=== PATIENT | male | born 1960 | race Native Hawaiian/Other Pacific Islander ===

== ENCOUNTER 2016-10-27 09:11 | Outpatient (CLI) | payer OTHER ==
[2016-10-27 09:35] LABS: PLATELET COUNT 143 K/uL (142-355)
== END 2016-10-27 20:11 | disposition home or self-care (01) ==
LOC: LABW 09:11
PROVIDERS: Internal Medicine Gastroenterology
DX: B18.2 Chronic viral hepatitis C (principal)
CPT/HCPCS: 36415; 80076; 85027; 85610; 87522

== ENCOUNTER 2017-07-14 14:33 | Outpatient (CLI) | payer OTHER | END 2017-07-14 15:35 | disposition home or self-care (01) | LOC: RESP 14:33 | DX: Z79.899 Other long term (current) drug therapy (principal) | CPT/HCPCS: 93005 ==

== ENCOUNTER 2017-08-21 14:01 | Emergency (ER) | payer OTHER ==
[~2017-08-21] VITALS: Ht 172.7 cm; Wt 96.6 kg
[2017-08-21 14:18] VITALS: TEMP 97.7
[2017-08-21 15:47] LABS: POTASSIUM 4.2 mmol/L (3.6-5.2); SODIUM 135 mmol/L (136-145)
[2017-08-21 15:54] LABS: PLATELET COUNT 134 K/uL (142-355)
[2017-08-21 16:27] VITALS: BP 140/70
== END 2017-08-21 16:34 | disposition home or self-care (01) ==
LOC: ED 14:01
PROVIDERS: Family Medicine
DX: R10.84 Generalized abdominal pain (principal)
CPT/HCPCS: 36415; 80048; 85027; 99282

== ENCOUNTER 2017-11-20 15:23 | Inpatient (IN) | payer OTHER ==
[~2017-11-20] VITALS: Ht 172.7 cm; Wt 101.2 kg
[2017-11-20] VITALS (9 sets, daily range): BP systolic 105–137; BP diastolic 55–90; TEMP 99.1–100.8; Ht 172.7 cm; Wt 101.2 kg
[2017-11-20] MEDS ORDERED: GEODON60 MG PO (15:32)
[2017-11-20] MEDS ORDERED: ABILIFY MAINTE400 MG IM (15:33)
[2017-11-20 16:38] LABS: PLATELET COUNT 141 K/uL (142-355)
[2017-11-20 16:45] LABS: POTASSIUM 4.1 mmol/L (3.6-5.2); SODIUM 137 mmol/L (136-145)
[2017-11-21] VITALS (23 sets, daily range): BP systolic 90–171; BP diastolic 67–94; TEMP 97.8–98.8
[2017-11-21 06:40] LABS: PLATELET COUNT 107 K/uL (142-355)
[2017-11-21 06:50] LABS: POTASSIUM 3.8 mmol/L (3.6-5.2)
[2017-11-22] VITALS (18 sets, daily range): BP systolic 11–139; BP diastolic 65–97; TEMP 97.7–98.9
[2017-11-22 07:28] LABS: PLATELET COUNT 112 K/uL (142-355)
[2017-11-22 08:17] LABS: POTASSIUM 4.3 mmol/L (3.6-5.2)
[2017-11-23] VITALS: BP 127/82; TEMP 97.6
[2017-11-23 04:00] VITALS: BP 117/82; TEMP 97.7
[2017-11-23 05:29] LABS: PLATELET COUNT 140 K/uL (142-355)
[2017-11-23 05:39] LABS: POTASSIUM 4.1 mmol/L (3.6-5.2)
[2017-11-23 07:51] VITALS: BP 122/86; TEMP 97.8
[2017-11-23 12:00] VITALS: BP 125/71; TEMP 98.6
[2017-11-23 16:00] VITALS: BP 116/72; TEMP 98.4
[2017-11-23 20:00] VITALS: BP 109/70; TEMP 98.2
[2017-11-24] VITALS: BP 135/80; TEMP 98.1
[2017-11-24 04:00] VITALS: BP 142/85; TEMP 97.6
[2017-11-24 06:02] LABS: PLATELET COUNT 118 K/uL (142-355)
[2017-11-24 06:10] LABS: POTASSIUM 4.1 mmol/L (3.6-5.2)
[2017-11-24 08:24] VITALS: BP 141/90; TEMP 98.6
== END 2017-11-24 12:24 | disposition home or self-care (01) | DRG 193 ==
LOC: ED 15:23 → MED/SURG 18:23 → ICU 18:23 → MED/SURG 11-22 16:20
PROVIDERS: Emergency Medicine; ADMIT Internal Medicine
DX: J18.8 Other pneumonia, unspecified organism (principal); J96.01 Acute respiratory failure with hypoxia; J44.1 Chronic obstructive pulmonary disease with (acute) exacerbation; F20.89 Other schizophrenia; J44.0 Chronic obstructive pulmonary disease with (acute) lower respiratory infection
CPT/HCPCS: 36415; 36600; 80048; 80053; 81000; 82550; 82805; 82948; 83036; 83880; 84484; 85027; 87040; 87070; 87205; 94640; 94664; 94668; 94760; 96365; 96372; 96374; 99284; J1100; J1650; J1956; J2405; J2930

== ENCOUNTER 2018-04-21 11:13 | Emergency (ER) | payer OTHER ==
[~2018-04-21] VITALS: Ht 172.7 cm; Wt 104.3 kg
[~2018-04-21 11:13] MED LIST: ABILIFY MAINTE400 MG IM; GEODON60 MG PO
[2018-04-21 11:19] VITALS: TEMP 98.1
[2018-04-21 12:37] LABS: PLATELET COUNT 124 K/uL (142-355)
[2018-04-21 12:50] LABS: POTASSIUM 3.8 mmol/L (3.6-5.2)
[2018-04-21 14:30] VITALS: BP 148/92
[2018-05-05] MEDS ORDERED: ALBU90AE13 INH (10:10)
[2018-05-05] MEDS ORDERED: ATOR20TA2 PO (10:10)
[2018-05-05] MEDS ORDERED: ZIPR80CA PO (10:10)
== END 2018-04-21 14:50 | disposition other institution (70) ==
LOC: ED 11:13
DX: F20.89 Other schizophrenia (principal)
CPT/HCPCS: 80053; 80307; 80320; 80329; 81000; 85027; 93005; 96372; 99285; J1885

== ENCOUNTER 2018-06-23 15:12 | Outpatient (CLI) | payer OTHER ==
[~2018-06-23 15:12] MED LIST changes: +ALBU90AE13 INH; +ATOR20TA2 PO; +ZIPR80CA PO
== END 2018-06-23 19:26 | disposition home or self-care (01) ==
LOC: RAD 15:12
DX: J40 Bronchitis, not specified as acute or chronic (principal)

== ENCOUNTER 2018-10-30 13:07 | Emergency (ER) | payer OTHER ==
[~2018-10-30] VITALS: Ht 172.7 cm; Wt 108.9 kg
[2018-10-30 13:12] VITALS: TEMP 97.6
[2018-10-30 14:20] VITALS: BP 166/98
== END 2018-10-30 14:20 | disposition home or self-care (01) ==
LOC: ED 13:07
DX: R05 Cough (principal); J20.9 Acute bronchitis, unspecified
CPT/HCPCS: 94664; 99283

== ENCOUNTER 2018-11-16 16:53 | Outpatient (CLI) | payer OTHER ==
[2018-11-16 17:15] LABS: PLATELET COUNT 98 K/uL (142-355)
[2018-11-16 17:40] LABS: POTASSIUM 4.3 mmol/L (3.6-5.2)
== END 2018-11-16 19:45 | disposition home or self-care (01) ==
LOC: LAB 16:53
PROVIDERS: Internal Medicine Gastroenterology
DX: B18.2 Chronic viral hepatitis C (principal)
CPT/HCPCS: 36415; 80053; 82140; 85027; 85610; 87522

== ENCOUNTER 2018-11-26 09:44 | Outpatient (CLI) | payer OTHER | END 2018-11-26 19:47 | disposition home or self-care (01) | LOC: US 09:44 | DX: B18.2 Chronic viral hepatitis C (principal) ==

== ENCOUNTER 2019-01-11 02:09 | Emergency (ER) | payer OTHER ==
[~2019-01-11] VITALS: Ht 172.7 cm; Wt 107.5 kg
[2019-01-11 02:57] LABS: PLATELET COUNT 103 K/uL (142-355)
[2019-01-11 03:27] LABS: SODIUM 137 mmol/L (136-145)
[2019-01-11 03:54] VITALS: BP 161/87; TEMP 97.9
== END 2019-01-11 03:57 | disposition home or self-care (01) ==
LOC: ED 02:09
PROVIDERS: Emergency Medicine
DX: N13.2 Hydronephrosis with renal and ureteral calculous obstruction (principal); Z79.899 Other long term (current) drug therapy
CPT/HCPCS: 36415; 80053; 80307; 80329; 81000; 85027; 96372; 99283; J1885

== ENCOUNTER 2019-01-28 11:07 | Outpatient (CLI) | payer OTHER ==
[2019-01-28 11:58] LABS: PLATELET COUNT 85 K/uL (142-355)
[2019-01-28 12:24] LABS: POTASSIUM 4.2 mmol/L (3.6-5.2)
== END 2019-01-28 23:19 | disposition home or self-care (01) ==
LOC: RAD 11:07
PROVIDERS: Physician Assistant
DX: R19.02 Left upper quadrant abdominal swelling, mass and lump (principal); R11.11 Vomiting without nausea; R10.84 Generalized abdominal pain; Z79.899 Other long term (current) drug therapy
CPT/HCPCS: 36415; 74022; 80053; 80061; 82150; 83690; 84154; 84443; 85027

== ENCOUNTER 2019-03-07 10:25 | Outpatient (CLI) | payer OTHER ==
[2019-03-07 10:49] LABS: PLATELET COUNT 88 K/uL (142-355)
== END 2019-03-07 23:36 | disposition home or self-care (01) ==
LOC: LABW 10:25
PROVIDERS: Internal Medicine Gastroenterology
DX: B18.2 Chronic viral hepatitis C (principal)
CPT/HCPCS: 36415; 80076; 85027

== ENCOUNTER 2019-03-30 11:28 | Day surgery (SDC) | payer OTHER | END 2019-03-30 17:30 | disposition home or self-care (01) | LOC: OR 11:28 | PROC: 0DB68ZZ Excision of Stomach, Via Natural or Artificial Opening Endoscopic (ICD-10-PCS; principal; 2019-03-30) | DX: K21.0 Gastro-esophageal reflux disease with esophagitis (principal); K22.10 Ulcer of esophagus without bleeding; K29.50 Unspecified chronic gastritis without bleeding; K76.6 Portal hypertension; K31.89 Other diseases of stomach and duodenum; B18.2 Chronic viral hepatitis C; K74.60 Unspecified cirrhosis of liver; J44.9 Chronic obstructive pulmonary disease, unspecified | CPT/HCPCS: 94640; 94664; J2001; J2704 ==

== ENCOUNTER 2019-04-05 15:33 | Outpatient (CLI) | payer OTHER | END 2019-04-05 23:48 | disposition home or self-care (01) | LOC: LABW 15:33 | PROVIDERS: Nurse Practitioner Family | DX: L40.0 Psoriasis vulgaris (principal); Z79.899 Other long term (current) drug therapy; B18.2 Chronic viral hepatitis C | CPT/HCPCS: 36415; 80053; 80074; 86480; 87522 ==

== ENCOUNTER 2019-05-03 10:41 | Outpatient (CLI) | payer OTHER ==
[2019-05-03 11:09] LABS: POTASSIUM 3.9 mmol/L (3.6-5.2)
== END 2019-05-03 23:59 | disposition home or self-care (01) ==
LOC: LABW 10:41
PROVIDERS: Nurse Practitioner Family
DX: R94.5 Abnormal results of liver function studies (principal)
CPT/HCPCS: 36415; 80053

== ENCOUNTER 2019-05-23 11:53 | Inpatient (IN) | payer OTHER ==
[2019-05-23] VITALS (10 sets, daily range): BP systolic 102–151; BP diastolic 57–87; TEMP 97.5–98.2; Ht 172.7 cm; Wt 108.9 kg
[~2019-05-23] VITALS: Ht 172.7 cm; Wt 108.9 kg
[2019-05-23 12:55] LABS: PLATELET COUNT 116 K/uL (142-355)
[2019-05-23 13:01] LABS: POTASSIUM 3.8 mmol/L (3.6-5.2); SODIUM 140 mmol/L (136-145)
[2019-05-23 13:18] LABS: PARTIAL THROMBOPLASTIN TIME 26.7 SECONDS (24.5-33.6)
[2019-05-24] VITALS (10 sets, daily range): BP systolic 100–131; BP diastolic 59–84; TEMP 97.1–98.9
[2019-05-24 05:34] LABS: PLATELET COUNT 123 K/uL (142-355)
[2019-05-24 05:58] LABS: POTASSIUM 4.3 mmol/L (3.6-5.2)
[2019-05-24] MEDS ORDERED: EUTHYROX25 MCG PO (10:15)
[2019-05-24] MEDS ORDERED: TAMSULOSIN0.4 MG PO (10:17)
[2019-05-24] MEDS ORDERED: PANTOPRAZOLE 40MG TA PO (10:40)
[2019-05-24] MEDS ORDERED: CLOBETASOL0.051 EX (10:42)
[2019-05-24] MEDS ORDERED: KETOCONAZOLE2 % EX (10:45)
[2019-05-25] VITALS (15 sets, daily range): BP systolic 102–149; BP diastolic 58–86; TEMP 97.1–98.6
[2019-05-25 05:18] LABS: PLATELET COUNT 135 K/uL (142-355)
[2019-05-25 05:34] LABS: POTASSIUM 4.2 mmol/L (3.6-5.2)
[2019-05-26] VITALS (8 sets, daily range): BP systolic 105–128; BP diastolic 48–78; TEMP 97–98.7
[2019-05-26 08:12] LABS: PLATELET COUNT 143 K/uL (142-355)
[2019-05-26 08:21] LABS: POTASSIUM 3.5 mmol/L (3.6-5.2)
[2019-05-26] MEDS ORDERED: GLUCOTROL 5MG TAB PO (17:16)
[2019-05-26] MEDS ORDERED: SPIR50TA8 PO (17:17)
[2019-05-26] MEDS ORDERED: FURO40TA93 PO (17:18)
== END 2019-05-26 18:22 | disposition home or self-care (01) | DRG 441 ==
LOC: ED 11:53 → ICU 14:27
PROVIDERS: Internal Medicine; Student in an Organized Health Care Education/Training Program; ADMIT Family Medicine
DX: K72.00 Acute and subacute hepatic failure without coma (principal); I50.31 Acute diastolic (congestive) heart failure; F20.0 Paranoid schizophrenia; J44.1 Chronic obstructive pulmonary disease with (acute) exacerbation; K72.10 Chronic hepatic failure without coma; E11.65 Type 2 diabetes mellitus with hyperglycemia; I11.0 Hypertensive heart disease with heart failure; E03.8 Other specified hypothyroidism; K74.69 Other cirrhosis of liver; B18.2 Chronic viral hepatitis C; N40.0 Benign prostatic hyperplasia without lower urinary tract symptoms; K21.9 Gastro-esophageal reflux disease without esophagitis; K71.51 Toxic liver disease with chronic active hepatitis with ascites; R16.1 Splenomegaly, not elsewhere classified; R06.03 Acute respiratory distress; R09.02 Hypoxemia; E78.00 Pure hypercholesterolemia, unspecified
CPT/HCPCS: 36600; 80048; 80053; 80307; 80320; 80329; 82140; 82150; 82550; 82553; 82805; 83036; 83605; 83690; 83735; 83880; 84443; 84484; 85027; 85379; 85610; 85730; 87040; 93005; 93306; 94640; 94664; 96374; 99285; J1815; J1940; J2930

== ENCOUNTER 2019-06-17 10:33 | Outpatient (CLI) | payer OTHER ==
[~2019-06-17 10:33] MED LIST changes: +CLOBETASOL0.051 EX; +EUTHYROX25 MCG PO; +FURO40TA93 PO; +GLUCOTROL 5MG TAB PO; +KETOCONAZOLE2 % EX; +PANTOPRAZOLE 40MG TA PO; +SPIR50TA8 PO; +TAMSULOSIN0.4 MG PO
[2019-06-17 11:30] LABS: POTASSIUM 4.4 mmol/L (3.6-5.2)
== END 2019-06-17 19:50 | disposition home or self-care (01) ==
LOC: LABW 10:33
PROVIDERS: Internal Medicine Gastroenterology
DX: K75.81 Nonalcoholic steatohepatitis (NASH) (principal)
CPT/HCPCS: 36415; 80048

== ENCOUNTER 2020-05-03 10:32 | Outpatient (CLI) | payer OTHER ==
[2020-05-03 10:51] LABS: PLATELET COUNT 98 K/uL (142-355)
[2020-05-03 11:14] LABS: POTASSIUM 3.7 mmol/L (3.6-5.2)
== END 2020-05-03 21:57 | disposition home or self-care (01) ==
LOC: LABW 10:32
PROVIDERS: Internal Medicine
DX: E11.9 Type 2 diabetes mellitus without complications (principal); R32 Unspecified urinary incontinence
CPT/HCPCS: 36415; 80053; 80061; 81000; 82043; 82570; 83036; 84153; 84439; 84443; 85027

== ENCOUNTER 2020-07-05 15:14 | Emergency (ER) | payer OTHER ==
[~2020-07-05] VITALS: Ht 172.7 cm; Wt 99.8 kg
[2020-07-05 15:32] VITALS: BP 125/84; TEMP 98.5
== END 2020-07-05 16:35 | disposition home or self-care (01) ==
LOC: ED 15:14
DX: R05 Cough (principal); R09.89 Other specified symptoms and signs involving the circulatory and respiratory systems
CPT/HCPCS: 99281

== ENCOUNTER 2020-09-18 14:45 | Outpatient (CLI) | payer OTHER ==
[2020-09-18 15:27] LABS: PLATELET COUNT 110 K/uL (142-355)
[2020-09-18 16:05] LABS: POTASSIUM 4.4 mmol/L (3.6-5.2)
== END 2020-09-18 22:10 | disposition home or self-care (01) ==
LOC: LABW 14:45
PROVIDERS: ATTEND Internal Medicine
DX: E11.9 Type 2 diabetes mellitus without complications (principal); R32 Unspecified urinary incontinence
CPT/HCPCS: 36415; 80053; 80061; 81000; 83036; 84153; 84439; 84443; 85027

== ENCOUNTER 2020-11-15 11:19 | Outpatient (CLI) | payer OTHER | END 2020-11-15 21:45 | disposition home or self-care (01) | LOC: CT 11:19 | PROVIDERS: ATTEND Internal Medicine | DX: N20.0 Calculus of kidney (principal); J44.9 Chronic obstructive pulmonary disease, unspecified ==

== ENCOUNTER 2021-02-16 13:13 | Emergency (ER) | payer OTHER ==
[~2021-02-16] VITALS: Ht 172.7 cm; Wt 94.3 kg
[2021-02-16 13:24] VITALS: TEMP 99.9
[2021-02-16 14:23] LABS: PLATELET COUNT 92 K/uL (142-355)
[2021-02-16 14:31] LABS: POTASSIUM 3.9 mmol/L (3.6-5.2); SODIUM 143 mmol/L (136-145)
[2021-02-16 16:41] VITALS: BP 127/78
== END 2021-02-16 16:45 | disposition home or self-care (01) ==
LOC: ED 13:13
PROVIDERS: Family Medicine
DX: J44.1 Chronic obstructive pulmonary disease with (acute) exacerbation (principal); L40.8 Other psoriasis; I10 Essential (primary) hypertension; F17.210 Nicotine dependence, cigarettes, uncomplicated
CPT/HCPCS: 80053; 81000; 82550; 84484; 85027; 93005; 94664; 96374; 99284; J2930

== ENCOUNTER 2021-04-22 08:34 | Emergency (ER) | payer OTHER ==
[~2021-04-22] VITALS: Ht 172.7 cm; Wt 82.1 kg
[2021-04-22 08:44] VITALS: BP 136/93; TEMP 98
[2021-04-22 09:45] LABS: PLATELET COUNT 146 K/uL (142-355)
[2021-04-22 09:54] LABS: POTASSIUM 3.8 mmol/L (3.6-5.2); SODIUM 144 mmol/L (136-145)
[2021-04-22] MEDS ORDERED: ALBUTEROL0.083 % INH (11:56)
[2021-04-22] MEDS ORDERED: PROVENTIL108 MCG/AC INH (11:59)
== END 2021-04-22 10:50 | disposition other institution (70) ==
LOC: ED 08:34
PROVIDERS: Emergency Medicine Emergency Medical Services
DX: R41.82 Altered mental status, unspecified (principal); Z11.52 Encounter for screening for COVID-19; Z00.8 Encounter for other general examination
CPT/HCPCS: 80053; 80329; 85027; 87635; 99285; J3486; U0003

== ENCOUNTER 2022-01-18 15:17 | Emergency (ER) | payer OTHER ==
[~2022-01-18] VITALS: Ht 172.7 cm; Wt 82.1 kg
[2022-01-18 15:17] VITALS: BP 100/73; TEMP 96.5
[~2022-01-18 15:17] MED LIST changes: +ABILIFY 10MG TAB PO; +ACET-206 PO; +ALBUTEROL0.083 % INH; +CLOZ100T PO; +DIVALPROEX500 MG PO; +HALO5TAB10 PO; +LEVO0.0529 PO; +MAGNSUS68 PO; +PROVENTIL108 MCG/AC INH; +TAMS0.4C PO; +ZIPR20IN IM
[2022-01-18 15:36] LABS: PLATELET COUNT 108 K/uL (142-355)
[2022-01-18 15:47] LABS: POTASSIUM 4.3 mmol/L (3.6-5.2)
[2022-01-18] MEDS ORDERED: TYLENOL325 MG PO (17:44)
[2022-01-18] MEDS ORDERED: ABILIFY20 MG PO (17:44)
[2022-01-18] MEDS ORDERED: ALBUTEROL0.083 % INH (17:45)
[2022-01-18] MEDS ORDERED: DIVA250T PO (17:46)
[2022-01-18] MEDS ORDERED: FURO40TA93 PO (17:46)
[2022-01-18] MEDS ORDERED: GLIP10TA55 PO (17:46)
[2022-01-18] MEDS ORDERED: MAGNSUS68 PO (17:47)
[2022-01-18] MEDS ORDERED: LEVO0.0529 PO (17:47)
[2022-01-18] MEDS ORDERED: PANTOPRAZOLE 40MG TA PO (17:48)
[2022-01-18] MEDS ORDERED: OLAN2.5T2 PO (17:48)
[2022-01-18] MEDS ORDERED: K-TABS10 MEQ PO (17:49)
[2022-01-18] MEDS ORDERED: TAMS0.4C PO (17:49)
== END 2022-01-18 17:03 | disposition home or self-care (01) ==
LOC: ED 15:17
PROVIDERS: Family Medicine
DX: F20.0 Paranoid schizophrenia (principal); R46.89 Other symptoms and signs involving appearance and behavior; Z11.52 Encounter for screening for COVID-19; Z04.6 Encounter for general psychiatric examination, requested by authority
CPT/HCPCS: 80053; 85027; 87635; 93005; 99283; U0003

== ENCOUNTER 2023-05-25 19:27 | Emergency (ER) | payer OTHER ==
[~2023-05-25] VITALS: Ht 172.7 cm; Wt 90.3 kg
[~2023-05-25 19:27] MED LIST changes: +ABILIFY20 MG PO; +DEXTROSE IV; +DIVA250T PO; +DIVA500T2 PO; +DIVALPROEX500 M1 PO; +ESCI10TA PO; +GLIP10TA55 PO; +GLIPIZIDE ER PO; +HALO5INJ3 IM; +K-TABS10 MEQ PO; +LEXAPRO10 MG PO; +NYSTCRE TOP; +OLAN2.5T2 PO; +OLANZAPINE10 MG PO; +OLANZAPINE5 MG PO; +POTA10CA3 PO; +TYLENOL325 MG PO
[2023-05-25 19:30] VITALS: TEMP 98.1
[2023-05-25 19:45] LABS: PLATELET COUNT 97 K/uL (142-355)
[2023-05-25 19:57] LABS: POTASSIUM 3.6 mmol/L (3.6-5.2)
[2023-05-25 21:30] VITALS: BP 122/74
[2023-05-26] MEDS ORDERED: BENZ1TAB43 PO (07:49)
[2023-05-26] MEDS ORDERED: FURO40TA93 PO (07:50)
[2023-05-26] MEDS ORDERED: DIVALPROEX500 M1 PO ×2 (07:50→09:16)
[2023-05-26] MEDS ORDERED: DIVALPROEX250 M1 PO (07:50)
[2023-05-26] MEDS ORDERED: GLIPIZIDE ER PO (07:51)
[2023-05-26] MEDS ORDERED: HALO5INJ3 IM (07:52)
[2023-05-26] MEDS ORDERED: IPRATROPIUM/ INH (07:53)
[2023-05-26] MEDS ORDERED: LEVO0.0529 PO (07:53)
[2023-05-26] MEDS ORDERED: METF500T PO (07:54)
[2023-05-26] MEDS ORDERED: CLARITIN10 M1 PO (07:54)
[2023-05-26] MEDS ORDERED: KETOCONAZOLE21 TOP (07:55)
[2023-05-26] MEDS ORDERED: K-TABS10 MEQ PO (07:55)
[2023-05-26] MEDS ORDERED: RISP25IN IM (07:56)
[2023-05-26] MEDS ORDERED: RISP2TAB2 PO (07:57)
[2023-05-26] MEDS ORDERED: SPIRONOLACT25 MG PO (07:58)
[2023-05-26] MEDS ORDERED: TAMS0.4C PO (07:59)
[2023-05-26] MEDS ORDERED: TRELEGY ELLIPTA1 AER PO (07:59)
[2023-05-26] MEDS ORDERED: HALOPERIDOL DECANOAT IM (08:04)
[2023-05-26] MEDS ORDERED: LORA2INJ21 INJ (08:12)
[2023-06-08] MEDS ORDERED: BUDE1AER5 INH (11:17)
[2023-06-08] MEDS ORDERED: DIVALPROEX500 MG PO (11:17)
[2023-06-08] MEDS ORDERED: FURO40TA93 PO (11:18)
[2023-06-08] MEDS ORDERED: GLUCOTROL 5MG TAB PO (11:18)
[2023-06-08] MEDS ORDERED: LEVO0.0529 PO (11:19)
[2023-06-08] MEDS ORDERED: KETO2SHA7 TOP (11:19)
[2023-06-08] MEDS ORDERED: METF500T PO (11:20)
[2023-06-08] MEDS ORDERED: LORA10TA3 PO (11:20)
[2023-06-08] MEDS ORDERED: OLANZAPINE5 MG PO (11:20)
[2023-06-08] MEDS ORDERED: POTA10CA3 PO (11:21)
[2023-06-08] MEDS ORDERED: TAMS0.4C PO (11:21)
[2023-06-08] MEDS ORDERED: SPIR50TA8 PO ×2 (11:21)
[2023-06-08] MEDS ORDERED: TIOTCAP2 INH (11:22)
== END 2023-05-25 21:30 | disposition other institution (70) ==
LOC: ED 19:27
PROVIDERS: Family Medicine
DX: F20.9 Schizophrenia, unspecified (principal); J44.9 Chronic obstructive pulmonary disease, unspecified; R45.6 Violent behavior; R45.1 Restlessness and agitation; Z02.79 Encounter for issue of other medical certificate
CPT/HCPCS: 80053; 81002; 85027; 87635; 93005; 99283; U0003